=== PATIENT | female | born 2000 | race Two or more races ===

== ENCOUNTER 2022-04-13 07:00 | Inpatient (IN) | payer OTHER ==
[~2022-04-13] VITALS: Ht 160 cm; Wt 72.6 kg
[2022-04-13] MEDS ORDERED: TRI-ESTARYLLA1 EACH PO (08:16)
== END 2022-04-19 14:30 | disposition home or self-care (01) | DRG 743 ==
LOC: O/R 04-18 05:42 → SURG 04-18 07:00 → OB/GYN 04-18 09:57
PROVIDERS: ADMIT Obstetrics & Gynecology; ATTEND Obstetrics & Gynecology
PROC: 0UT10ZZ Resection of Left Ovary, Open Approach (ICD-10-PCS; 2022-04-18)
PROC: 0DN80ZZ Release Small Intestine, Open Approach (ICD-10-PCS; 2022-04-18)
PROC: 0UT60ZZ Resection of Left Fallopian Tube, Open Approach (ICD-10-PCS; principal; 2022-04-18 07:00)
DX: D27.1 Benign neoplasm of left ovary (principal); K66.0 Peritoneal adhesions (postprocedural) (postinfection); Z20.822 Contact with and (suspected) exposure to COVID-19